=== PATIENT | female | born 1975 | race Caucasian/White ===

== ENCOUNTER 2024-11-25 14:55 | Outpatient (AMB) | payer BC, SELFPAY ==
[2024-11-25 15:06] VITALS: BP 124/80; PULSE 85; O2SAT 96; BMI 25.3
--- NOTE | 2024-11-25 15:06 | MHC.OFFVIS ---
Vital Signs 11/25/24 15:06 Height 5 ft 8 in Weight 166 lb 7.184 oz BMI 25.3 BP 124/80 Blood Pressure Location Lt brachial Position Sitting Pulse 85 Pulse Source Pulse Oximeter Pulse Oximetry (%) 96 Oxygen Delivery Method Room Air Intake Visit Reasons: asthma Intake Note: qvar is her prior inhaler that insurance is not covering. 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 The patient is a 49 year woman with a known history of asthma. She has had asthma for most of her life. Had significant allergies. For the most part she has been treated with allergy medication. She did receive allergy shots for a few years but then she stopped during the pandemic. She was very stable on QVAR and also a rescue inhaler. But then her QVAR was no longer covered. Therefore she was sent breaztri to the pharmacy but she has not started it as of yet. She is concerned about potential side effects. The patient has not had any recent breathing studies chest x-rays. She did have a chest x-ray back in 2016 which I personally reviewed demonstrating some evidence of bronchitis. Specially in the right lower lobe area. In addition to that the patient also had blood work at that time demonstrating significant eosinophilia with an absolute eosinophil count of 700. 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 At this point the patient is doing well though she did require prednisone not too long ago for an asthma exacerbation. She may be a good candidate for biologics specially if she continues to have worsening symptoms. [facility] Medical History (Updated 11/25/24 @ 20:00 by Vijay Welsh MD) Eosinophilia Eczema Allergies Asthma Social History (Updated 11/25/24 @ 15:12 by COLLEEN Belcher) Patient Tobacco Use Status: Former Tobacco user Years Smoked: 25 Review of Systems Const Denies fever(s) Eyes Reports no additional complaints ENT Reports nasal congestion Card Denies chest pain Resp Reports cough and Reports wheezing GI Reports no additional complaints Musc Reports no additional complaints Skin/Breast Reports rash [place]/Lymph Reports no additional complaints Aller/Immun Reports wheezing Physical Exam Vital Signs: Last Vital Signs Pulse 85 11/25/24 15:06 BP 124/80 11/25/24 15:06 Pulse Ox 96 11/25/24 15:06 Oxygen Delivery Method Room Air 11/25/24 15:06 BMI result Body Mass Index 25.3 Const General: comfortable Orientation/consciousness: oriented to person HEENT Head: Yes normal to inspection Eyes General: appearance normal, both eyes and all related structures Neck Neck: Yes normal visual inspection Chest Chest palpation & inspection: normal inspection of the chest Resp Effort & Inspection: normal respiratory effort Auscultation: diminished lung sounds Cardio Heart sounds: S1 normal heart sound present and S2 normal heart sound present GI Palpation (GI): Soft to palpation Skin Rashes: rashes noted (eczema) Neuro General: oriented to person Extrem General: Yes no clubbing, cyanosis or edema Assessment & Plan Assessment & Plan (1) Asthma: Code(s): J45.909 - Unspecified asthma, uncomplicated Category: Medical Qualifiers: Asthma severity: moderate Asthma persistence: persistent Asthma complication type: uncomplicated Qualified Code(s): J45.40 - Moderate persistent asthma, uncomplicated (2) Allergies: Code(s): T78.40XA - Allergy, unspecified, initial encounter Category: Medical Qualifiers: Encounter type: initial encounter Qualified Code(s): T78.40XA - Allergy, unspecified, initial encounter (3) Eczema: Code(s): L30.9 - Dermatitis, unspecified Category: Medical Qualifiers: Eczema type: flexural Qualified Code(s): L20.82 - Flexural eczema (4) Eosinophilia: Code(s): D72.10 - Eosinophilia, unspecified Category: Medical Qualifiers: Eosinophilia type: other eosinophilia Qualified Code(s): D72.19 - Other eosinophilia Plan start QVAR hold Breztri BRIAN as needed continue antihistamine therapy consider Singulair seasonally (Spring/fall) PFTs/CXR F/U 3 months Orders: Orders XR chest 2V Today J45.909 - Unspecified asthma, uncomplicated PFT pulmonary function test Today J45.909 - Unspecified asthma, uncomplicated Medications: New beclomethasone dipropionate 80 mcg/actuation (Qvar RediHaler) 1 inh inhalation BID 10.6 grams 11RF 30 days Coding Level of Care Code New Pt Level 4 (12257) Diagnoses Moderate persistent asthma without complication J45.40 Asthma severity: moderate Asthma persistence: persistent Asthma complication type: uncomplicated Allergy, initial encounter T78.40XA Encounter type: initial encounter Flexural eczema L20.82 Eczema type: flexural Other eosinophilia D72.19 Eosinophilia type: other eosinophilia Time Spent (min) 35
== END 2024-11-25 15:49 | disposition home or self-care (01) ==
PROVIDERS: PCP Nurse Practitioner; Visit Provider Hospitalist
DX: J45.40 Moderate persistent asthma, uncomplicated (principal); T78.40XA Allergy, unspecified, initial encounter; L20.82 Flexural eczema; D72.19 Other eosinophilia
CPT/HCPCS: 99204

== ENCOUNTER → 2024-11-25 14:55 | Outpatient (BNVA) | payer BC, SELFPAY | PROVIDERS: PCP Nurse Practitioner; Visit Provider Hospitalist ==

== ENCOUNTER 2025-01-07 15:48 | Outpatient (REF) | payer BC, SELFPAY ==
--- NOTE | 2025-01-07 15:51 | PFT_ITS ---
Indication: Asthma Spirometry [FEV1 to FVC 66%; FEV1 2.97 L; FVC 4.5 L. there is a significant response to bronchodilators noted.] Lung Volumes [Total lung capacity 100% predicted; residual volume 95% predicted] Diffusion Capacity [DLCO 104% predicted] Comparisons [None] Interpretation [There is an obstructive ventilatory defect consistent with likely uncontrolled asthma or asthma COPD overlap syndrome. There is a significant response to bronchodilators noted. Normal lung volumes and normal diffusing capacity. Clinical correlation warranted.] MTDD
== END 2025-01-07 15:49 | disposition home or self-care (01) ==
LOC: HO.RESP 15:48
PROVIDERS: PCP Family Medicine; Visit Provider Hospitalist
DX: J45.909 Unspecified asthma, uncomplicated (principal)
CPT/HCPCS: 94010; 94640; 94727; 94729

== ENCOUNTER → 2025-01-07 15:51 | Outpatient (BNV) | payer BC, SELFPAY | PROVIDERS: PCP Family Medicine; Visit Provider Hospitalist | DX: J45.909 Unspecified asthma, uncomplicated (principal) | CPT/HCPCS: 94060; 94727; 94729 ==

== ENCOUNTER 2025-02-14 15:36 | Outpatient (AMB) | payer BC, SELFPAY ==
[2025-02-14 15:48] VITALS: BP 128/86; PULSE 73; O2SAT 95; BMI 25.3
--- NOTE | 2025-02-14 15:48 | MHC.OFFVIS ---
Vital Signs 02/14/25 15:48 Height 5 ft 8 in Weight 166 lb 7.184 oz BMI 25.3 BP 128/86 Blood Pressure Location Rt brachial Position Sitting Pulse 73 Pulse Source Pulse Oximeter Pulse Oximetry (%) 95 Oxygen Delivery Method Room Air Intake Visit Reasons: Asthma Allergies No Known Allergies Allergy (Verified 02/14/25 15:51) HPI Comments Details: The patient is a 49 year woman with a known history of asthma. She has had asthma for most of her life. Had significant allergies. For the most part she has been treated with allergy medication. She did receive allergy shots for a few years but then she stopped during the pandemic. She was very stable on QVAR and also a rescue inhaler. But then her QVAR was no longer covered. Therefore she was sent breaztri to the pharmacy but she has not started it as of yet. She is concerned about potential side effects. The patient has not had any recent breathing studies chest x-rays. She did have a chest x-ray back in 2015 which I personally reviewed demonstrating some evidence of bronchitis. Specially in the right lower lobe area. In addition to that the patient also had blood work at that time demonstrating significant eosinophilia with an absolute eosinophil count of 700. 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 At this point the patient is doing well though she did require prednisone not too long ago for an asthma exacerbation. She may be a good candidate for biologics specially if she continues to have worsening symptoms. 02/14/2025 the patient is here for a pulmonary follow-up visit. She still struggling with her asthma. She did start the Breztri inhaler although she has notices some irritation to the mouth. I did provide her with a spacer to see if this works a little better. In addition to that she did undergo pulmonary function studies which we personally reviewed. She appears to have a partially reversible obstruction consistent with uncontrolled asthma. Unfortunately she has had asthma for long time. She has significant small airways disease consistent with her asthma. No evidence of any significant air trapping at this time. The patient has had allergy testing and was getting allergy shots but right now she does not have the time 4. Based on the fact that she is maximizing her respiratory therapy she may be a great candidate for biologics. Will have her get blood work to see which would be the ideal biologic for her. Most likely I will 5 inhibitors will probably work best. Now going to the spring she has worsening symptoms. The patient returned for months. If she has any difficulties prior to that she will call. Once we have the blood work we can assess to see which biologic will work for her best. [facility] Medical History (Updated 02/16/25 @ 23:00 by Vijay Welsh MD) Chronic allergic rhinitis Eosinophilia Eczema Allergies Asthma Social History Patient Tobacco Use Status: Former Tobacco user Years Smoked: 25 Review of Systems Const Denies fever(s) Eyes Reports no additional complaints ENT Reports nasal congestion Card Denies chest pain Resp Reports cough and Reports wheezing GI Reports no additional complaints Musc Reports no additional complaints Skin/Breast Reports rash [place]/Lymph Reports no additional complaints Aller/Immun Reports wheezing Physical Exam Vital Signs: Last Vital Signs Pulse 73 02/14/25 15:48 BP 128/86 02/14/25 15:48 Pulse Ox 95 02/14/25 15:48 Oxygen Delivery Method Room Air 02/14/25 15:48 BMI result Body Mass Index 25.3 Const General: comfortable Orientation/consciousness: oriented to person HEENT Head: Yes normal to inspection Eyes General: appearance normal, both eyes and all related structures Neck Neck: Yes normal visual inspection Chest Chest palpation & inspection: normal inspection of the chest Resp Effort & Inspection: normal respiratory effort and prolonged expiratory phase Auscultation: wheezes and diminished lung sounds Cardio Heart sounds: S1 normal heart sound present and S2 normal heart sound present GI Palpation (GI): Soft to palpation Skin Rashes: rashes noted (eczema) Neuro General: oriented to person Extrem General: Yes no clubbing, cyanosis or edema Assessment & Plan Assessment & Plan (1) Asthma: Code(s): J45.909 - Unspecified asthma, uncomplicated Category: Medical Qualifiers: Asthma complication type: uncomplicated Asthma persistence: persistent Asthma severity: severe Qualified Code(s): J45.50 - Severe persistent asthma, uncomplicated (2) Allergies: Code(s): T78.40XA - Allergy, unspecified, initial encounter Category: Medical Qualifiers: Encounter type: initial encounter Qualified Code(s): T78.40XA - Allergy, unspecified, initial encounter (3) Eczema: Code(s): L30.9 - Dermatitis, unspecified Category: Medical Qualifiers: Eczema type: flexural Qualified Code(s): L20.82 - Flexural eczema (4) Eosinophilia: Code(s): D72.10 - Eosinophilia, unspecified Category: Medical Qualifiers: Eosinophilia type: other eosinophilia Qualified Code(s): D72.19 - Other eosinophilia (5) Chronic allergic rhinitis: Code(s): J30.9 - Allergic rhinitis, unspecified Category: Medical Plan [facility] with spacer BRIAN as needed continue antihistamine therapy Singulair seasonally (Spring/fall) Bloodwork, will look into starting Biologic therapy; Dupixent versus Fasenra. We will review her bloodwork and decide start Fluticasone nasal spray F/U 3-4 months Orders: Orders Immunoglobulins,IgG IgA IgM 02/14/25 D72. - Other eosinophilia, J45.40 - Moderate persistent asthma, uncomplicated, L20.82 - Flexural eczema, T78.40XA - Allergy, unspecified, initial encounter Complete Blood Count Auto Diff 02/14/25 D72.19 - Other eosinophilia, J45.40 - Moderate persistent asthma, uncomplicated, L20.82 - Flexural eczema, T78.40XA - Allergy, unspecified, initial encounter Erythrocyte Sedimentation Rate 02/14/25 D72.19 - Other eosinophilia, J45.40 - Moderate persistent asthma, uncomplicated, L20.82 - Flexural eczema, T78.40XA - Allergy, unspecified, initial encounter Immunoglobulin E 02/14/25 D72.19 - Other eosinophilia, J45.40 - Moderate persistent asthma, uncomplicated, L20.82 - Flexural eczema, T78.40XA - Allergy, unspecified, initial encounter Hypersensitive Pneumonitis Prf 02/14/25 D72.19 - Other eosinophilia, J45.40 - Moderate persistent asthma, uncomplicated, L20.82 - Flexural eczema, R91.8 - Other nonspecific abnormal finding of lung field, T78.40XA - Allergy, unspecified, initial encounter Medications: New montelukast (Singulair) 10 mg PO BEDTIME 30 tabs 11RF 30 days J45.909 - Unspecified asthma, uncomplicated fluticasone propionate 50 mcg/actuation 2 sprays intranasal DAILY 15.8 mL 11RF 30 days J31.0 - Chronic rhinitis Coding Level of Care Code Est Pt Level 4 (28071) Diagnoses Severe persistent asthma without complication J45.50 Asthma complication type: uncomplicated Asthma persistence: persistent Asthma severity: severe Allergy, initial encounter T78.40XA Encounter type: initial encounter Flexural eczema L20.82 Eczema type: flexural Other eosinophilia D72.19 Eosinophilia type: other eosinophilia Chronic allergic rhinitis J30.9 Time Spent (min) 16
== END 2025-02-14 16:33 | disposition home or self-care (01) ==
LOC: HO.HPS 15:36
PROVIDERS: PCP Nurse Practitioner; Visit Provider Hospitalist
DX: J45.50 Severe persistent asthma, uncomplicated (principal); T78.40XA Allergy, unspecified, initial encounter; L20.82 Flexural eczema; D72.19 Other eosinophilia; J30.9 Allergic rhinitis, unspecified
CPT/HCPCS: 99214

== ENCOUNTER → 2025-02-14 15:36 | Outpatient (BNVA) | payer BC, SELFPAY | PROVIDERS: PCP Nurse Practitioner; Visit Provider Hospitalist ==

== ENCOUNTER 2025-06-10 15:25 | Outpatient (AMB) | payer BC, SELFPAY ==
--- NOTE | 2025-06-10 15:28 | MHC.OFFVIS ---
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 She has had asthma for most of her life. Had significant allergies. For the most part she has been treated with allergy medication. She did receive allergy shots for a few years but then she stopped during the pandemic. She was very stable on QVAR and also a rescue inhaler. But then her QVAR was no longer covered. Therefore she was sent breaztri to the pharmacy but she has not started it as of yet. She is concerned about potential side effects. The patient has not had any recent breathing studies chest x-rays. She did have a chest x-ray back in 2015 which I personally reviewed demonstrating some evidence of bronchitis. Specially in the right lower lobe area. In addition to that the patient also had blood work at that time demonstrating significant eosinophilia with an absolute eosinophil count of 700. 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 At this point the patient is doing well though she did require prednisone not too long ago for an asthma exacerbation. She may be a good candidate for biologics specially if she continues to have worsening symptoms. 02/14/2025 the patient is here for a pulmonary follow-up visit. She still struggling with her asthma. She did start the Breztri inhaler although she has notices some irritation to the mouth. I did provide her with a spacer to see if this works a little better. In addition to that she did undergo pulmonary function studies which we personally reviewed. She appears to have a partially reversible obstruction consistent with uncontrolled asthma. Unfortunately she has had asthma for long time. She has significant small airways disease consistent with her asthma. No evidence of any significant air trapping at this time. The patient has had allergy testing and was getting allergy shots but right now she does not have the time 4. Based on the fact that she is maximizing her respiratory therapy she may be a great candidate for biologics. Will have her get blood work to see which would be the ideal biologic for her. Most likely I will 5 inhibitors will probably work best. Now going to the spring she has worsening symptoms. The patient returned for months. If she has any difficulties prior to that she will call. Once we have the blood work we can assess to see which biologic will work for her best. 06/10/2025 the patient is here for pulmonary follow-up visit. Overall she is doing well. The Breztri inhaler has been affecting beneficial. She continues use it with a spacer. We again review the spacer. The patient does have concerns about the fall when she started developing significant allergy symptoms. She also gets eczema and chronic rhinitis. Will go ahead and request blood work at that point sometime in July in order to see if she would be benefitting from biologic therapy. She is already maxed out on respiratory therapy at this time. Will follow-up in 4 months if she has any issues prior to that she will call for an earlier assessment. She will continue with the current respiratory therapy at this time. [facility] Medical History (Updated 02/16/25 @ 23:00 by Vijay Welsh MD) Chronic allergic rhinitis Eosinophilia Eczema Allergies Asthma Social History Patient Tobacco Use Status: Former Tobacco user Years Smoked: 25 Review of Systems Const Denies fever(s) Eyes Reports no additional complaints ENT Reports nasal congestion Card Denies chest pain Resp Reports cough and Reports wheezing GI Reports no additional complaints Musc Reports no additional complaints Skin/Breast Reports rash [place]/Lymph Reports no additional complaints Aller/Immun Reports wheezing Physical Exam Vital Signs: Last Vital Signs Pulse 82 06/10/25 15:29 BP 124/68 06/10/25 15:29 Pulse Ox 96 06/10/25 15:29 Oxygen Delivery Method Room Air 06/10/25 15:29 BMI result Body Mass Index 25.0 Const General: comfortable Orientation/consciousness: oriented to person HEENT Head: Yes normal to inspection Eyes General: appearance normal, both eyes and all related structures Neck Neck: Yes normal visual inspection Chest Chest palpation & inspection: normal inspection of the chest Resp Effort & Inspection: normal respiratory effort and prolonged expiratory phase Auscultation: diminished lung sounds Cardio Heart sounds: S1 normal heart sound present and S2 normal heart sound present GI Palpation (GI): Soft to palpation Skin Rashes: rashes noted (eczema) Neuro General: oriented to person Extrem General: Yes no clubbing, cyanosis or edema Assessment & Plan Assessment & Plan (1) Asthma: Code(s): J45.909 - Unspecified asthma, uncomplicated Category: Medical Qualifiers: Asthma complication type: uncomplicated Asthma persistence: persistent Asthma severity: severe Qualified Code(s): J45.50 - Severe persistent asthma, uncomplicated (2) Allergies: Code(s): T78.40XA - Allergy, unspecified, initial encounter Category: Medical Qualifiers: Encounter type: initial encounter Qualified Code(s): T78.40XA - Allergy, unspecified, initial encounter (3) Eczema: Code(s): L30.9 - Dermatitis, unspecified Category: Medical Qualifiers: Eczema type: flexural Qualified Code(s): L20.82 - Flexural eczema (4) Eosinophilia: Code(s): D72.10 - Eosinophilia, unspecified Category: Medical Qualifiers: Eosinophilia type: other eosinophilia Qualified Code(s): D72.19 - Other eosinophilia (5) Chronic allergic rhinitis: Code(s): J30.9 - Allergic rhinitis, unspecified Category: Medical Plan Breztri with spacer BRIAN as needed continue antihistamine therapy Singulair seasonally (Spring/fall) Bloodwork, will look into starting Biologic therapy; Dupixent versus Fasenra. We will review her bloodwork and decide Fluticasone nasal spray F/U 3-4 months Orders: Orders Complete Blood Count Auto Diff Today J30.9 - Allergic rhinitis, unspecified, J45.50 - Severe persistent asthma, uncomplicated, T78.40XA - Allergy, unspecified, initial encounter Immunoglobulins,IgG IgA IgM Today J30.9 - Allergic rhinitis, unspecified, J45.50 - Severe persistent asthma, uncomplicated, T78.40XA - Allergy, unspecified, initial encounter Immunoglobulin E Today J30.9 - Allergic rhinitis, unspecified, J45.50 - Severe persistent asthma, uncomplicated, T78.40XA - Allergy, unspecified, initial encounter Erythrocyte Sedimentation Rate Today J30.9 - Allergic rhinitis, unspecified, J45.50 - Severe persistent asthma, uncomplicated, T78.40XA - Allergy, unspecified, initial encounter Hypersensitive Pneumonitis Prf Today J30.9 - Allergic rhinitis, unspecified, J45.50 - Severe persistent asthma, uncomplicated, R91.8 - Other nonspecific abnormal finding of lung field, T78.40XA - Allergy, unspecified, initial encounter Coding Level of Care Code Est Pt Level 4 (84762) Diagnoses Severe persistent asthma without complication J45.50 Asthma complication type: uncomplicated Asthma persistence: persistent Asthma severity: severe Allergy, initial encounter T78.40XA Encounter type: initial encounter Flexural eczema L20.82 Eczema type: flexural Other eosinophilia D72.19 Eosinophilia type: other eosinophilia Chronic allergic rhinitis J30.9 Time Spent (min) 16
[2025-06-10 15:29] VITALS: BP 124/68; PULSE 82; O2SAT 96; BMI 25.0
== END 2025-06-10 15:48 | disposition home or self-care (01) ==
LOC: HO.HPS 15:26
PROVIDERS: PCP Nurse Practitioner; Visit Provider Hospitalist
DX: J45.50 Severe persistent asthma, uncomplicated (principal); T78.40XA Allergy, unspecified, initial encounter; L20.82 Flexural eczema; D72.19 Other eosinophilia; J30.9 Allergic rhinitis, unspecified
CPT/HCPCS: 99214